=== PATIENT | male | born 1995 | race African-American/Black ===

== ENCOUNTER 2016-08-16 17:26 | Emergency (ER) | payer SELFPAY ==
[2016-08-16 17:49] VITALS: TEMP 99.2
[2016-08-16 17:50] VITALS: BMI 32.6
[2016-08-16] MEDS ORDERED: OXYCODONE HCL 5 MG TABLET PO ONE (17:53)
[2016-08-16 18:18] LABS: AUTOMATED BASOPHIL 2.9 % (0-2); AUTOMATED LYMPH 36.9 % (17-44); AUTOMATED MONOCYTE 6.2 % (3-10); MPV 7.5 fL (7.4-10.4)
[2016-08-16 18:31] LABS: PARTIAL THROMB. TIME 26.4 SEC (22-35); PT-INR 1.1
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
[2016-08-16 18:59] LABS: BLOOD UREA NITROGEN 11 MG/DL (9-20); CALCIUM 8.9 MG/DL (8.4-10.2); CALCULATED OSMOLALITY 269 MOs/Kg (270-290); CHLORIDE 103 mEq/L (98-107); GLUCOSE 109 MG/DL (70-99); SODIUM LEVEL 140 mEq/L (137-146); TOTAL PROTEIN 6.7 G/DL (6.3-8.2)
--- NOTE | 2016-08-16 19:32 | DIRPT ---
CLINICAL DATA: Acute onset of right holman pain and swelling. Initial encounter. EXAM: RIGHT LOWER EXTREMITY VENOUS DOPPLER ULTRASOUND TECHNIQUE: Jurado-scale sonography with graded compression, as well as color Doppler and duplex ultrasound were performed to evaluate the lower extremity deep venous systems from the level of the common femoral vein and including the common femoral, femoral, profunda femoral, popliteal and calf veins including the posterior tibial, peroneal and gastrocnemius veins when visible. The superficial great saphenous vein was also interrogated. Spectral Doppler was utilized to evaluate flow at rest and with distal augmentation maneuvers in the common femoral, femoral and popliteal veins. COMPARISON: None. FINDINGS: Contralateral Common Femoral Vein: Respiratory phasicity is normal and symmetric with the symptomatic side. No evidence of thrombus. Normal compressibility. Common Femoral Vein: No evidence of thrombus. Normal compressibility, respiratory phasicity and response to augmentation. Saphenofemoral Junction: No evidence of thrombus. Normal compressibility and flow on color Doppler imaging. Profunda Femoral Vein: No evidence of thrombus. Normal compressibility and flow on color Doppler imaging. Femoral Vein: No evidence of thrombus. Normal compressibility, respiratory phasicity and response to augmentation. Popliteal Vein: No evidence of thrombus. Normal compressibility, respiratory phasicity and response to augmentation. Calf Veins: No evidence of thrombus. Normal compressibility and flow on color Doppler imaging. The peroneal vein is not visualized. Superficial Great Saphenous Vein: No evidence of thrombus. Normal compressibility and flow on color Doppler imaging. Venous Reflux: None. Other Findings: A heterogeneous partially calcified mass is noted along the right holman, measuring 7.8 x 1.6 x 2.7 cm. This demonstrates mild associated blood flow, and appears to be situated within the musculature. It may reflect chronic sequelae of an intramuscular hematoma, or a partially calcified holman splint. IMPRESSION: 1. No evidence of deep venous thrombosis. 2. At the site of the patient's symptoms, there is a heterogeneous partially calcified mass along the right holman, measuring 7.8 x 1.6 x 2.7 cm. This demonstrates mild associated blood flow, and appears to be situated within the musculature. It may reflect chronic sequelae of an intramuscular hematoma, or a partially calcified holman splint. Would correlate with right lower leg radiographs, to confirm a benign appearance. Electronically Signed By: Dale Holloway M.D. On: 08/16/2016 19:29
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
[2016-08-16 20:58] VITALS: BP 122/56; PULSE 68
== END 2016-08-16 20:22 | disposition home or self-care (01) ==
LOC: ED 17:26
DX: M79.661 Pain in right lower leg (principal)
CPT/HCPCS: 36415; 73590; 80053; 83880; 85025; 85610; 85730; 93971; 99283; J3490